=== PATIENT | female | born 1955 | race Caucasian/White ===

== ENCOUNTER 2020-08-24 15:51 | Emergency (ER) | payer MEDICAID ==
[~2020-08-24] VITALS: Ht 165.1 cm; Wt 68.0 kg
--- NOTE | 2020-08-24 17:42 | NUR ---
PT FELL ON R. WRIST AFTER TRIPPING ON A CURB WHEN ON A RUN. NOW HAS SWELLING AND PAIN. PT ATTACHED TO MONITORS. VSS. MENDOZA.
--- NOTE | 2020-08-24 17:44 | NUR ---
DR. ORONA AT BEDSIDE FOR EVALUATION
[2020-08-24] MEDS ORDERED: HYDROcodone/APAP 5/325 TABLET ONE (18:00)
[2020-08-24] MEDS ORDERED: HYDROcodone/APAP 5/325 TABLET PO ONE (18:00)
[2020-08-24 19:02] VITALS: BP 121/61
--- NOTE | 2020-08-24 20:04 | NUR ---
Patient given discharge instructions and they have confirmed that they understand the instructions. Patient ambulatory with steady gait. Patient states she has safe ride home.
== END 2020-08-24 20:05 | disposition home or self-care (01) ==
LOC: ED 19:43
DX: S62.366A Nondisplaced fracture of neck of fifth metacarpal bone, right hand, initial encounter for closed fracture (principal); W01.0XXA Fall on same level from slipping, tripping and stumbling without subsequent striking against object, initial encounter; Y93.02 Activity, running; Y92.89 Other specified places as the place of occurrence of the external cause; Y99.8 Other external cause status
CPT/HCPCS: 29125; 99284

== ENCOUNTER 2020-11-02 11:23 | Observation (INO) | payer MEDICAID ==
[~2020-11-02] VITALS: Ht 165.1 cm; Wt 68.4 kg
--- NOTE | 2020-11-02 11:38 | NUR ---
"SO, I WENT TO THE DR'S OFFICE AND I PASSED OUT, THAT'S WHY YOU WERE CALLED. AND I WAS THERE FOR A REFILL FOR MY MIGRAINE MEDICATION". PT DENIES LEZAMA OR PAIN AT INITIAL TRIAGE BUT STATES L HEAD PAIN WITH ERP. PT PLACED ON ALL ROOM MONITORING. VSS. NEURO EXAM INTACT WITH EXCEPTION OF CONFUSION. PT ABLE TO ANSWER NAME, , SOME MEDICAL HX, CHILDREN'S NAME AND WHERE THEY LIVE. CALL LIGHT WITHIN REACH.
--- NOTE | 2020-11-02 11:52 | NUR ---
BSC USED, URINAL COLLECTED/SENT TO LAB. POC REINFORCED SEVERAL TIMES, PT UNABLE TO UNDERSTAND. LAB IN TO DRAW. CALL LIGHT WITHIN REACH, WARM BLANKET PROVIDED.
[2020-11-02 12:12] LABS: BASOPHILS % (AUTO) 1 % (0-1); EOSINOPHILS % (AUTO) 1 % (1-7); LYMPHOCYTES % (AUTO) 16 % (22-44); MEAN CORPUSCULAR HEMOGLOBIN 31.6 pg (27.0-34.8); MEAN CORPUSCULAR HGB CONC 34.5 g/dL (32.4-35.8); MEAN PLATELET VOLUME 7.6 fL (7.4-10.4); MONOCYTES % (AUTO) 5 % (2-9); NEUTROPHILS % (AUTO) 78 % (42-75); PLATELET COUNT 230 x10^3/uL (130-400); RED BLOOD COUNT 4.85 x10^6/uL (3.82-5.3); RED CELL DISTRIBUTION WIDTH 13.8 % (9.6-15.2)
[2020-11-02 12:17] LABS: MICROSCOPIC INDICATED
[2020-11-02 12:19] LABS: ALANINE AMINOTRANSFERASE 25 U/L (12-78); ALBUMIN 4.1 g/dL (3.4-5.0); ANION GAP 5 mmol/L (5-15); CALCIUM 10.1 mg/dL (8.5-10.1); CHLORIDE 112 mmol/L (98-107); CREATININE 0.82 mg/dL (0.55-1.02)
[2020-11-02 12:23] LABS: ALKALINE PHOSPHATASE 108 U/L (45-117); BILIRUBIN,TOTAL 0.7 mg/dL (0.2-1.0); TOTAL PROTEIN 8.1 g/dL (6.4-8.2); TROPONIN I < 0.015 ng/mL (0.000-0.045)
--- NOTE | 2020-11-02 12:36 | NUR ---
PT RESTING ON PUMA BOO. AWAITING CT.
--- NOTE | 2020-11-02 12:59 | NUR ---
FAMILY AT BS. FAMILY UPDATED ON POC, CONDITIONS OF PT BEING IN ER. PT CONTINUES WITH REPETITIVE QUESTIONING, ORIENTED X PERSON.
--- NOTE | 2020-11-02 13:00 | NUR ---
CALL TO CT TO INQUIRE ON DELAY. PT TO GO TO CT NOW.
--- NOTE | 2020-11-02 13:32 | NUR ---
CT RESULTS BACK, PT FOR RECHECK.
[2020-11-02] MEDS ORDERED: METOCLOPRAMIDE 5 MG/ML, 2ML ONE (13:49)
[2020-11-02] MEDS ORDERED: KETOROLAC 30 MG/1 ML ONE (13:49)
[2020-11-02] MEDS ORDERED: METOCLOPRAMIDE 5 MG/ML, 2ML IVPush ONE (14:00)
[2020-11-02] MEDS ORDERED: KETOROLAC 15 MG/1ML IVPush ONE (14:00)
--- NOTE | 2020-11-02 14:11 | NUR ---
FLOAT RN AT BEDSIDE. PT RA DECREASED TO 79%. PLACED ON 3L NASAL CANNULA, SPO2 IMROVED TO 95%. ED MD ORONA AT BEDSIDE TO DISCUSS POC.
[2020-11-02] MEDS ORDERED: SODIUM CHLORIDE FLUSH 10ML SYR IVF PRN (15:00)
--- NOTE | 2020-11-02 15:13 | NUR ---
PT RESTING COMFORTABLY, STATES LEZAMA PAIN DECREASED. AWAITING ADMIT BED. FAMILY AT BS.
[2020-11-02] MEDS ORDERED: DOCUSATE 100 MG CAPSULE PO PRN (15:30)
[2020-11-02] MEDS ORDERED: POLYETHYLENE GLYCOL 17 GM PACKET PO PRN (15:30)
[2020-11-02] MEDS ORDERED: PROMETHAZINE 25 MG/ML, 1ML IM PRN (15:30)
[2020-11-02] MEDS: SODIUM CHLORIDE 0.9% 1,000 ML IV SCH (15:30)
[2020-11-02] MEDS ORDERED: BISACODYL 10 MG SUPP PR PRN (15:30)
[2020-11-02] MEDS ORDERED: hydrALAzine 20 MG/ML, 1ML IVPush PRN (15:30)
[2020-11-02] MEDS ORDERED: ONDANSETRON ODT 4 MG PO PRN (15:30)
[2020-11-02] MEDS ORDERED: ONDANSETRON 2MG/ML, 2ML IVPush PRN (15:30)
--- NOTE | 2020-11-02 16:30 | NUR ---
ATTEMPT TO CALL REPORT.
--- NOTE | 2020-11-02 16:57 | NUR ---
REPORT TO CLARIBEL NGUYEN READY FOR TRANSPORT TO FLOOR.
[2020-11-02 17:37] VITALS: BP 119/77
[2020-11-02] MEDS: ENOXAPARIN 40 MG/0.4 ML SQ SCH (17:40)
[2020-11-02] MEDS: ASPIRIN 325 MG TABLET EC PO SCH (17:40)
[2020-11-02] MEDS: ACETAMINOPHEN 325 MG TABLET PO PRN ×2 (17:40→23:40)
[2020-11-02] MEDS ORDERED: ONDA4TAB13 SL (18:18)
[2020-11-02] MEDS ORDERED: SUMA50TA4 PO (18:18)
[2020-11-02 19:22] VITALS: BP 128/72
[2020-11-02] MEDS: ASA/APAP/ CAFFEINE TABLET PO PRN (19:58)
[2020-11-03] MEDS ORDERED: MELATONIN 5 MG TABLET PO SCH
[2020-11-03 00:10] VITALS: BP 96/62
[2020-11-03] MEDS: SODIUM CHLORIDE 0.9% 1,000 ML IV SCH (04:28)
[2020-11-03 04:29] VITALS: BP 81/54
[2020-11-03 04:39] VITALS: BP 86/58
[2020-11-03] MEDS: ASPIRIN 325 MG TABLET EC PO SCH (05:13)
[2020-11-03 05:30] LABS: BASOPHILS % (AUTO) 1 % (0-1); EOSINOPHILS % (AUTO) 3 % (1-7); LYMPHOCYTES % (AUTO) 45 % (22-44); MEAN CORPUSCULAR HEMOGLOBIN 31.3 pg (27.0-34.8); MONOCYTES % (AUTO) 7 % (2-9); NEUTROPHILS % (AUTO) 44 % (42-75); PLATELET COUNT 190 x10^3/uL (130-400); RED BLOOD COUNT 4.21 x10^6/uL (3.82-5.3); RED CELL DISTRIBUTION WIDTH 13.7 % (9.6-15.2)
[2020-11-03 05:41] LABS: CALCIUM 8.9 mg/dL (8.5-10.1); CHLORIDE 114 mmol/L (98-107)
[2020-11-03 05:53] LABS: ALANINE AMINOTRANSFERASE 20 U/L (12-78); ALKALINE PHOSPHATASE 80 U/L (45-117); ANION GAP 5 mmol/L (5-15); BILIRUBIN,TOTAL 0.6 mg/dL (0.2-1.0); CHOL/HDL RATIO 2.1; CHOLESTEROL, TOTAL 161 mg/dL (140-239); CREATININE 0.61 mg/dL (0.55-1.02); HDL CHOL % 47 % (28-40); HDL CHOLESTEROL (DIRECT) 76 mg/dL (40-60); LDL CHOLESTEROL,CALCULATED 67 mg/dL (54-169); LDL/HDL RATIO 0.9 (0.5-3.0); TOTAL PROTEIN 6.3 g/dL (6.4-8.2); TRIGLYCERIDES 89 mg/dL (50-200); VLDL CHOLESTEROL 18 mg/dL (0-25)
[2020-11-03 06:26] VITALS: BP 94/60
[2020-11-03] MEDS: ASA/APAP/ CAFFEINE TABLET PO PRN (07:33)
[2020-11-03 12:15] VITALS: BP 106/68
[2020-11-03] MEDS ORDERED: SODIUM CHLORIDE 0.9% 1,000 ML IV SCH (15:30)
[2020-11-03] MEDS: ENOXAPARIN 40 MG/0.4 ML SQ SCH (15:30)
== END 2020-11-03 17:21 | disposition home or self-care (01) ==
LOC: ED 12:13 → EDIP 14:34 → INTOOBSV 14:34 → 4EST 17:21
PROVIDERS: ADMIT Internal Medicine; ATTEND Internal Medicine
DX: R55 Syncope and collapse (principal); G45.4 Transient global amnesia; I95.89 Other hypotension; F17.290 Nicotine dependence, other tobacco product, uncomplicated; Z79.899 Other long term (current) drug therapy
CPT/HCPCS: 36415; 70450; 80053; 80061; 81001; 83036; 83735; 84100; 84439; 84443; 84484; 85025; 93306; 93880; 96361; 96372; 96374; 96375; 97161; 97165; 99284; G0378; J1650; J1885; J2765; J7030; Q0162; 99285